=== PATIENT | male | born 1935 | race Caucasian/White ===

== ENCOUNTER 2017-05-30 04:58 | Inpatient (IN) | payer OTHER, BC ==
[2017-04-29 13:05] VITALS: BMI 32.0
--- NOTE | 2017-04-29 13:47 | PAT Medication Instructions ---
Service Date Apr 29, 2017. Current Home Medication List Amlodipine (Norvasc), 5 MG PO QAM Apixaban (Eliquis), 5 MG PO BID Ascorbic Acid (Vitamin C), 1 TAB PO QAM B-Complex Vitamins (Vitamin B Complex), 1 TAB PO QAM Celecoxib (CeleBREX), 200 MG PO QAM Ferrous Sulfate (Kp Ferrous Sulfate), 1 TAB PO BID Fluoxetine (Prozac), 20 MG PO QAM Furosemide (Lasix), 20 MG PO QAM Magnesium Oxide (Mag-Ox), 400 MG PO BID Metolazone (Zaroxolyn), 2.5 MG PO MWF Multivitamin (Multivitamin), 1 TAB PO QAM Potassium Ext Rel (Klor-Con), 20 MEQ PO BID Pregabalin (Lyrica), 1 CAP PO TID Spironolactone (Aldactone), 12.5 MG PO QAM Sucralfate (Sucralfate), 1 TAB PO BID Tamsulosin HCl (Tamsulosin HCl), 1 CAP PO BID Medication Instructions For Your Scheduled Surgery - Check with surgeon for instructions: Celecoxib (CeleBREX), 200 MG PO QAM - Check with surgeon and cardiac rehabilitation program director for instructions: Apixaban (Eliquis), 5 MG PO BID - Hold the following medications the morning of surgery: Spironolactone (Aldactone), 12.5 MG PO QAM Sucralfate (Sucralfate), 1 TAB PO BID Tamsulosin HCl (Tamsulosin HCl), 1 CAP PO BID Multivitamin (Multivitamin), 1 TAB PO QAM Potassium Ext Rel (Klor-Con), 20 MEQ PO BID Magnesium Oxide (Mag-Ox), 400 MG PO BID Furosemide (Lasix), 20 MG PO QAM Ferrous Sulfate (Kp Ferrous Sulfate), 1 TAB PO BID Ascorbic Acid (Vitamin C), 1 TAB PO QAM B-Complex Vitamins (Vitamin B Complex), 1 TAB PO QAM Metolazone (Zaroxolyn), 2.5 MG PO MWF - Take the following medications the morning of surgery with a sip of water: Pregabalin (Lyrica), 1 CAP PO TID Fluoxetine (Prozac), 20 MG PO QAM Amlodipine (Norvasc), 5 MG PO QAM - Take the following medications as scheduled the night before surgery: Sucralfate (Sucralfate), 1 TAB PO BID Tamsulosin HCl (Tamsulosin HCl), 1 CAP PO BID Pregabalin (Lyrica), 1 CAP PO TID Potassium Ext Rel (Klor-Con), 20 MEQ PO BID Magnesium Oxide (Mag-Ox), 400 MG PO BID Ferrous Sulfate (Kp Ferrous Sulfate), 1 TAB PO BID If you have any questions please call us at [phone] or [phone] or [phone]
--- NOTE | 2017-04-29 14:37 | DIAGNOSTIC IMAGING REPORT ---
CHEST 2 VIEWS ROUTINE CLINICAL HISTORY: PAT preoperative evaluation COMPARISON STUDY: None. FINDINGS: Cardiomegaly. Permanent bipolar cardiac pacemaker. Slight interstitial prominence. No focal infiltrate. Diaphragms smooth. IMPRESSION:: Moderate cardiomegaly. Slight nonspecific interstitial prominence. The above report was generated using voice recognition software. It may contain grammatical, syntax or spelling errors. Electronically signed by: Kun Frederick M.D. 04/29/2017 2:36 PM Dictated Date/Time: 04/29/2017 2:35 PM
[2017-04-29 15:01] LABS: BASO % 0.6 %; BASO ABS # 0.04 K/uL (0-0.2); EOS % 5.7 %; HEMOGLOBIN 8.5 g/dL (14.0-18.0); IG# 0.02 K/uL (0.00-0.02); LYMPH % 22.6 %; LYMPH ABS # 1.59 K/uL (1.2-3.4); MEAN CELL VOLUME 76.9 fL (80-100); MEAN CORPUSCULAR HEMOGLOBIN 23.4 pg (25-34); MEAN CORPUSCULAR HGB CONC 30.4 g/dl (32-36); MEAN PLATELET VOLUME 9.4 fL (7.4-10.4); MONO % 11.8 %; MONO ABS # 0.83 K/uL (0.11-0.59); NEUT ABS # 4.14 K/uL (1.4-6.5); PLATELET COUNT 205 K/uL (130-400); RED CELL DISTRIBUTION WIDTH CV 21.7 % (11.5-14.5); RED CELL DISTRIBUTION WIDTH SD 61.8 fL (36.4-46.3); WHITE BLOOD COUNT 7.02 K/uL (4.8-10.8)
[2017-04-29 15:11] LABS: INR 1.1 (0.9-1.1); PTT PATIENT 29.5 SECONDS (21.0-31.0)
[2017-04-29 16:20] LABS: ALBUMIN 3.2 gm/dl (3.4-5.0); CALCIUM 8.4 mg/dl (8.5-10.1); CREATININE 1.14 mg/dl (0.60-1.40); POTASSIUM 2.9 mmol/L (3.5-5.1)
[2017-04-30 06:46] LABS: HEMOGLOBIN A1C 5.1 % (4.5-5.6)
--- NOTE | 2017-05-29 17:21 | History and Physical ---
History & Physical Date May 29, 2017. Chief Complaint left ankle pain History of Present Illness The patient is a 82 year old male with complaints of a multi-year hx of left ankle pain and had been treated conservatively for ankle osteoarthritis. He has failed all conservative management and is now being set up for a left total ankle arthroplasty. Past Medical/Surgical History PMH: CAD, hyperlipidemia, A Fib, valvular heart disease, hx of anemia, hx of bladder cancer, AAA, COPD, hx of GI bleed Past surgical hx: back surgery, bladder surgery, FERNY, TKA, neck surgery, pacemaker implant, PTCA Social hx: Denies tobacco use. Allergies Coded Allergies: No Known Allergies (Verified , 04/29/17) Home Medications Scheduled Amlodipine (Norvasc), 5 MG PO QAM Apixaban (Eliquis), 5 MG PO BID Ascorbic Acid (Vitamin C), 1 TAB PO QAM B-Complex Vitamins (Vitamin B Complex), 1 TAB PO QAM Celecoxib (CeleBREX), 200 MG PO QAM Ferrous Sulfate (Kp Ferrous Sulfate), 1 TAB PO BID Fluoxetine (Prozac), 20 MG PO QAM Furosemide (Lasix), 20 MG PO QAM Magnesium Oxide (Mag-Ox), 400 MG PO BID Metolazone (Zaroxolyn), 2.5 MG PO MWF Multivitamin (Multivitamin), 1 TAB PO QAM Potassium Ext Rel (Klor-Con), 20 MEQ PO BID Pregabalin (Lyrica), 1 CAP PO TID Spironolactone (Aldactone), 12.5 MG PO QAM Sucralfate (Sucralfate), 1 TAB PO BID Tamsulosin HCl (Tamsulosin HCl), 1 CAP PO BID Physical Examination Skin: warm/dry, no rash Eyes: normal inspection ENT: normal ENT inspection Head: normocephalic, atraumatic Neck: supple, no adenopathy, trachea midline Respiratory/Chest: lungs clear, normal breath sounds, no respiratory distress Cardiovascular: regular rate, rhythm Abdomen / GI: normal bowel sounds, non tender Extremities: + pertinent finding (Left ankle: antalgic left gait. Tender to palpation at the anterior/posterior ankle. Painful PROM with crepitation. Limited strength and ROM left ankle.) Neurologic/Psych: no motor/sensory deficits, alert, oriented x 3 Diagnosis left ankle osteoarthritis left achilles contracture Plan of Treatment Recommend a left STAR total ankle replacement, percutaneous tendoachilles lengthening, and application of platelet rich plasma. All potential risks, benefits, complications, alternatives, and rehab have been discussed and the patient wishes to proceed. He will be scheduled for 05.30.17.
[~2017-05-30] VITALS: Ht 185.4 cm; Wt 101.0 kg
[2017-05-30] VITALS (10 sets, daily range): BP systolic 102–135; BP diastolic 54–75; PULSE 61–99; TEMP 36.4–36.9; O2SAT 88–97; Ht 185.4 cm; Wt 101.0 kg
[~2017-05-30 04:58] MED LIST: AMLO-110 PO; APIX1TAB3 PO; ASCA500 PO; B-COTAB18 PO; CLB/200 PO; FERR1TAB13 PO; FLM4 PO; FLUO20CA35 PO; FURO-85 PO; LYR50 PO; MAGN400T6 PO; METO2.5T PO; MULT-506 PO; POTA20TA16 PO; SPIR25TA PO; SUCR1TAB PO
[2017-05-30] MEDS ORDERED: ACETAMINOPHEN 500 MG TAB PO SCH (06:00)
[2017-05-30] MEDS ORDERED: CEFAZOLIN 2000MG IV PUSH 15 ML IV SCH ×2 (06:00)
[2017-05-30] MEDS ORDERED: METOCLOPRAMIDE HCL 10 MG TAB PO SCH (06:00)
[2017-05-30] MEDS ORDERED: OXYCODONE HCL 10 MG TABCR (OXYCONTIN) PO SCH (06:00)
[2017-05-30] MEDS ORDERED: CeleBREX 200 MG CAP PO SCH (06:00)
[2017-05-30] MEDS ORDERED: LACTATED RINGER'S 1000ML 1,000 ML IV SCH (06:00)
[2017-05-30] MEDS ORDERED: GABAPENTIN 300 MG CAP PO SCH (06:00)
[2017-05-30] MEDS ORDERED: LACTATED RINGER'S 1000ML IV SCH (06:00)
[2017-05-30] MEDS ORDERED: FAMOTIDINE 20 MG TAB PO SCH (06:00)
[2017-05-30] MEDS ORDERED: DEXAMETHASONE 4 MG TAB PO SCH (06:00)
[2017-05-30] MEDS ORDERED: BUPIVACAINE 0.25% 30 ML VIAL ONE (06:13)
[2017-05-30] MEDS ORDERED: ROPIVACAINE 0.5% 5 MG/ML 30 ML VIAL ONE (06:14)
[2017-05-30] MEDS ORDERED: ATROPINE SULFATE 0.1 MG/ML 5ML SYR IV PRN (06:45)
[2017-05-30] MEDS ORDERED: PHENYLEPHRINE 100MCG/ML 5ML SYR IV PRN (06:45)
[2017-05-30] MEDS ORDERED: EpHEDrine SULFATE INJ 50 MG/ML AMP IV PRN (06:45)
[2017-05-30] MEDS ORDERED: FENTANYL CITRATE INJ 50 MCG/1 ML 2 ML VIAL IV PRN (06:45)
[2017-05-30] MEDS ORDERED: ONDANSETRON INJ 2 MG/ML 2 ML VIAL IV PRN ×2 (06:45→11:15)
[2017-05-30] MEDS ORDERED: HYDROmorphone INJ 1 MG/ML SYR IV PRN (06:45)
[2017-05-30] MEDS ORDERED: DEXAMETHASONE SOD INJ 4 MG/ML VIAL ONE (06:57)
[2017-05-30] MEDS ORDERED: LIDOCAINE HCL 2% 2 ML VIAL (20MG/ML) ONE (06:57)
[2017-05-30] MEDS ORDERED: PROPOFOL IV EMULSION 10 MG/ML 20 ML VIAL IV ONE (06:57)
[2017-05-30] MEDS ORDERED: LARYING-O-JET KIT (LTA) ONE (06:57)
[2017-05-30] MEDS ORDERED: PHENYLEPHRINE 100MCG/ML 5ML SYR ONE (06:57)
[2017-05-30] MEDS ORDERED: EpHEDrine SULFATE 50MG/5ML SYR ONE (06:57)
[2017-05-30] MEDS ORDERED: ONDANSETRON INJ 2 MG/ML 2 ML VIAL ONE (06:57)
[2017-05-30] MEDS ORDERED: BACITRACIN 50000 UNIT VIAL ONE (06:58)
[2017-05-30] MEDS ORDERED: FENTANYL CITRATE INJ 50 MCG/1 ML 2 ML VIAL ONE (06:58)
[2017-05-30] MEDS ORDERED: MIDAZOLAM HCL 1 MG/ML 2ML VIAL ONE (06:58)
--- NOTE | 2017-05-30 07:37 | History & Physical Bridge Note ---
H&P Re-Evaluation Bridge Note: I have examined the patient, reviewed the History & Physical and in the interval since the performance of the History & Physical I have noted the following changes of clinical significance: No changes noted
[2017-05-30] MEDS ORDERED: THROMBIN 5000 UNITS KIT ONE ×2 (07:51→08:46)
[2017-05-30] MEDS ORDERED: CALCIUM CHLORIDE 10% 10 ML SYR ONE (07:52)
[2017-05-30] MEDS ORDERED: ROCURONIUM BROMIDE 10 MG/ML 5 ML VIAL IV ONE (08:19)
[2017-05-30] MEDS ORDERED: GLYCOPYRROLATE INJ 0.2 MG/ML VIAL ONE (08:19)
[2017-05-30] MEDS ORDERED: NEOSTIGMINE METHYLSULFATE 5 MG/5 ML SYR ONE (08:19)
--- NOTE | 2017-05-30 10:33 | DIAGNOSTIC IMAGING REPORT ---
INTRAOPERATIVE RADIOGRAPHS CLINICAL HISTORY: Left ankle arthroplasty. Fluoroscopy time: 143 seconds. FINDINGS: 2 spot fluoroscopic views of the left ankle are presented. There has been left ankle arthroplasty. The arthroplasty is in near-anatomic alignment. Soft tissue edema is present around the ankle. No fracture is suggested on these fluoroscopic views. IMPRESSION: Intraoperative images from a left ankle arthroplasty procedure as above. See operative report for detailed findings. Electronically signed by: Cuong Austin M.D. 05/30/2017 10:31 AM Dictated Date/Time: 05/30/2017 10:25 AM
--- NOTE | 2017-05-30 10:34 | [facility] Post Operative Brief Note ---
Immediate Operative Summary Operative Date May 30, 2017. Pre-Operative Diagnosis Left ankle degenerative joint disease, osteoarthritis Left achilles contracture Post-Operative Diagnosis Left ankle degenerative joint disease, osteoarthritis Left achilles contracture Procedure(s) Performed Left STAR Total Ankle Replacement Percutaneous Tendon Achilles Lengthening Application of Platelet Rich Plasma Concentrate Surgeon Dr. Bello Structural Designer Surgeon(s) Mick Vergara PA-C Estimated Blood Loss 15 ML Findings Consistent with Post-Op Diagnosis Specimens a. Left ankle bone and tissue Drains HV x 1 Anesthesia Type General Regional Complication(s) none Disposition Accompanied Pt To Recover: no Disposition: Recovery Room / PACU
[2017-05-30] MEDS ORDERED: MoRPHine SULFATE 2 MG/ML CARP IV PRN (11:15)
[2017-05-30] MEDS ORDERED: SOD PHOSPHATE/SOD BIPHOSPHATE ENEMA 132 ML BTL PR PRN (11:15)
[2017-05-30] MEDS ORDERED: BISACODYL 10 MG SUPP PR PRN (11:15)
[2017-05-30] MEDS ORDERED: CEFAZOLIN IV 2,000 MG in DEXTROSE 5% 50ML 50 ML IV SCH (11:15)
[2017-05-30] MEDS ORDERED: ALUMINUM/MAGNESIUM/SIMETH (MAALOX MAX) 30 ML UDC PO PRN (11:15)
[2017-05-30] MEDS ORDERED: ZOLPIDEM TARTRATE 5 MG TAB PO PRN (11:15)
[2017-05-30] MEDS ORDERED: NO NSAIDS SCH (11:15)
[2017-05-30] MEDS ORDERED: MAGNESIUM HYDROXIDE SUSP 30 ML UDC PO PRN (11:15)
--- NOTE | 2017-05-30 11:52 | Anesthesiology Progress Note ---
Anesthesia Post Op Note Date & Time May 30, 2017 at 11:52 Vital Signs Pain Intensity: 0 Vital Signs Past 12 Hours Date Time Temp Pulse Resp B/P (MAP) Pulse Ox O2 Delivery O2 Flow Rate FiO2 05/30/17 11:45 36.2 71 13 128/72 97 Nasal Cannula 4 05/30/17 11:35 76 16 131/73 97 Nasal Cannula 4 05/30/17 11:25 76 17 137/66 96 Nasal Cannula 4 05/30/17 11:15 79 21 134/73 100 Oxymask 8 05/30/17 11:05 93 18 122/80 100 Oxymask 15 05/30/17 10:55 36.3 96 20 124/64 94 Oxymask 15 05/30/17 05:56 36.9 69 20 135/69 95 Room Air Notes Mental Status: alert / awake / arousable, participated in evaluation Pt Amnestic to Procedure: Yes Nausea / Vomiting: adequately controlled Pain: adequately controlled Airway Patency, RR, SpO2: stable & adequate BP & HR: stable & adequate Hydration State: stable & adequate Anesthetic Complications: no major complications apparent Awake, doing well, pain controlled, VSS. Ready for d/c
--- NOTE | 2017-05-30 11:56 | OPERATIVE REPORT ---
DATE OF OPERATION: 05/30/2017 PREOPERATIVE DIAGNOSES: 1. Left ankle degenerative joint disease. 2. Osteoarthritis. 3. Achilles contracture. 4. Valgus ankle. POSTOPERATIVE DIAGNOSES: Same. PROCEDURES: 1. Left ankle STAR total ankle replacement using a size extra large tibial component, a small talar component and a 6-mm polyethylene. 2. Percutaneous tendo Achilles lengthening. 3. Application of platelet rich plasma concentrate. SURGEON: Dr. Alireza Bello. RAIL SWITCH OPERATOR: Mick Vergara PA-C, who was present for patient positioning, sterile prep and drape, management of retractors and instruments. He was present through the critical portions of the case including wound closure, application of sterile dressing and transport of the patient to recovery. ANESTHESIA: General LMA with popliteal block. SPECIMENS: Bone and tissue. DRAINS: Hemovac x1. COMPLICATIONS: None. BLOOD LOSS: 15 mL. PERTINENT HISTORY: This is an 82-year-old gentleman who had chronic progressive and worsening left ankle degenerative joint disease with valgus deformity. He attempted and failed conservative management including use of a brace, modification of activities, anti-inflammatories, rest, steroid injections, physician directed home exercises, physical therapy and observation. He had failed all measures and radiographs demonstrate [id number] arthropathy with loss of joint space, marginal osteophytes, subchondral sclerosis, subchondral cysts and a valgus deformity of the ankle at the tibiotalar joint. The patient was scheduled for surgery as indicated. All potential risks, benefits, complications, alternatives, rehab, potential for incomplete relief of symptoms, need for further surgery, DVT, PE, , persistent pain, swelling, scarring, weakness, neurovascular injury, wound complications, hardware failure, nonunion, and malunion were discussed with the patient. The patient decided to proceed with the procedure as indicated. DESCRIPTION OF PROCEDURE: The patient was taken to the operative suite after popliteal block was administered. The patient was placed supine on the operating room table. Tourniquet was applied over the left lower extremity. After the patient was anesthetized, LMA was placed. The left lower extremity was then sterilely prepped and draped in the usual sterile fashion [id number], elevated and exsanguinated with an Esmarch bandage, and tourniquet inflated to 325 mmHg. Next, a 15-blade scalpel incision made in the midline of the left ankle taking care to identify the tibialis anterior. The incision was made lateral to the tibialis anterior and centered over the extensor hallucis longus tendon. The incision was deepened through subcutaneous tissue. Meticulous hemostasis was achieved with electrocautery. Full-thickness skin flaps were developed. Superficial peroneal nerve was identified, retracted, and protected. Next, the extensor retinaculum was incised along the skin incision to the lateral aspect of the tibialis anterior. Tibialis anterior was retracted medially. The extensor hallucis longus and the neurovascular bundle beneath were retracted laterally. The small crossing vessels were cauterized. The anterior capsule was then incised in its midline and then elevated medially and laterally with electrocautery. Appropriate soft tissue retractors were placed carefully to maintain essentially zero skin tension on the superficial skin. After the capsule was elevated and retracted medially and laterally to visualize the medial and lateral malleoli clearly, rongeur was used to perform synovectomy and remove any excess debris and loose bodies. Next, the wound was irrigated and suctioned. Good visualization was obtained. At this point the anterior lip of hypertrophic bone was resected from the tibia with an osteotome and mallet followed by resection of a small osteophyte medially at the medial malleolus. Next, the tibial plafond could be clearly visualized. The neck of the talus was then rongeured down to the true neck of the talus after all hypertrophic osteophytes were excised. Next, attention was directed toward the proximal tibia at which point a 15-blade scalpel incision was made anterior of the tibial tubercle the inferior aspect using the external alignment guide as a guide for pin placement which was essentially in the midline of the tibia with a slight degree of plantar flexion. Guide was placed anteriorly using a small osteotome in the medial gutter of the ankle joint to operator helper in alignment. Next, the small 2.4 mm pin was placed adjacent to the tibial tubercle and the alignment guide was placed approximately one fingerbreadth above the soft tissue and fastened there at approximately four notches medialized proximally. Next, the T-handle guide was placed anteriorly and then this was aligned with the small osteotome and placed in the medial gutter of the ankle joint to make this parallel and then also the orientation of the second ray of the foot was used to guide as well. Next, the more proximal alignment block was pinned unicortically followed by placement of the lateral alignment guide on the tibial alignment jig and the T-handle was removed. Distal cutting block was then fastened to the distal aspect of the tibial alignment guide and then x-rays obtained in AP and lateral projections of the ankle and tibia assuring appropriate alignment of the tibial alignment guide and the tibial cutting block. After appropriate alignment was established, the distal cutting block was then pinned in place with two 2.4 mm pins, one in the proximal and then secondarily in the distal aspect of the tibial cutting guide and the tibial cutting guide was aligned at the inferior aspect at the level of the tibial plafond. Next, after the tibial cutting blocks were aligned and confirmed, the medial and lateral saw capture pins were placed followed by resection of the distal tibia with a sagittal saw. The pins were removed and the distal cutting guide was then removed followed by removal of the distal tibial cut fragment after it was morselized with a small osteotome and resected with a rongeur. A cervical lamina lumber loader was placed in the ankle joint to open the ankle joint followed by resection of the posterior fragments from the distal tibia cut. Next, the talar cutting guide paddle was placed at the distal tibial cutting guide and fastened in place. The ankle was held in neutral dorsiflexion. Four pins were placed in the talar cutting block fixing the talus in appropriate alignment. Next, after the saw capture pins were placed, the sagittal saw was used to resect the superior aspect of the talus. The talar cutting block guide was then removed as well as the pins and talus. This was then followed by placement of datum guide which was initially placed as an extra small position with regard to position on the talus as well as orientation along the second ray. Central pin was placed and then the posterior capture cutting guide was attached and the anterior milling guide was also fastened with two football screws. Next, the anterior mill was used to resect the anterior aspect of the talar dome. Posterior cut was made. This jig was then removed followed by placement of the shoulder cutting guide and the reciprocating saw was just resect the shoulder portions of the talus using the laser cut line. This guide was then removed leaving the central pin followed by resection of the fragments using a small osteotome and mallet. This was then elevated and resected. Next, the window trial was firmly affixed to the superior aspect of the talus using fluoroscopic confirmation of alignment and position. Next, the central keel was drilled. The window trial was then removed following use of the central keel punch. This was also confirmed using fluoroscopic orthopaedic physician assistant. The wound was copiously irrigated with pulsatile lavage with Bacitracin additive followed by suctioning of the talar component. Platelet-rich plasma was injected at this time at the undersurface of the implant as well as in the talar dome. The final talar component was impacted in place with fluoroscopic assistance. Next, a trial polyethylene 6 mm was placed in the joint and the posterior aspect of the tibia was measured both medially and laterally. Appropriate size tibial drill guide was then placed and fastened with two pins. This was confirmed with x-ray and then the barrel drills x 2 were performed making certain to aim proximally. Next, the barrel cutting jig was then used to perform the final punch medially and laterally. The trial plate was then removed after appropriate sized polyethylene was sized. Next, the joint was copiously irrigated with pulsatile lavage followed by suctioning of all surfaces. The tibia was then injected with platelet-rich plasma as well as the superior aspect of the tibial final plate implant. This was then impacted in place with the trial polyethylene liner in place to ensure adequate positioning. Next, the final impactor was used to seat the tibial base tray flush with the anterior aspect of the tibia followed by bone grafting of the anterior barrel holes with local bone graft. This was impacted in place with a mallet and bone tamp. This then followed by confirmation with C-arm and then final polyethylene was inserted without difficulty. Excellent range of motion and stability was obtained. No liftoff was noted. The platelet-rich plasma was then sprayed within the joint and all surfaces and also into the subcutaneous tissue and deep soft tissue. Application of platelet rich plasma concentrate was then performed on the undersurfaces of the press fit components and also in the soft tissues of the joint, the joint capsule and soft tissues superficially. A 10-Sudanese single-lumen Hemovac drain was placed anterolaterally followed by closure of the ankle joint capsule with #1 Vicryl. The extensor retinaculum was closed using interrupted 2-0 Vicryl, the dermis closed buried 3-0 Vicryl, and skin was closed using 4-0 nylon. A sterile compressive bulky Jerod White plaster splint was applied overwrapped with an Elan wrap. Tourniquet was released. The patient was awakened and taken to recovery in stable condition. I attest to the content of the Intraoperative Record and any orders documented therein. Any exceptions are noted below. FRANCESCOD
--- NOTE | 2017-05-30 12:07 | DIAGNOSTIC IMAGING REPORT ---
LEFT ANKLE 3 VIEWS CLINICAL HISTORY: Arthritis. Postoperative examination. FINDINGS: 3 portable views of the left ankle are obtained. No prior studies are available for comparison at the time of dictation. The examination is performed through a splint, obscuring fine bony detail. The skeletal structures are osteopenic. A left ankle arthroplasty is in near-anatomic alignment. No acute fracture is seen. A surgical drain is in place. Skin clips are noted posteriorly. Soft tissue edema is present around the ankle. Atherosclerotic calcification is observed in the regional arteries. IMPRESSION: Expected postoperative findings status post left ankle arthroplasty procedure. No acute fracture is seen. Electronically signed by: Cuong Austin M.D. 05/30/2017 12:06 PM Dictated Date/Time: 05/30/2017 12:03 PM
[2017-05-30] MEDS ORDERED: POTASSIUM CHLR 20 MEQ / WTR 20 MEQ in PREMIXED WATER 100 ML IV SCH (12:45)
[2017-05-30] MEDS ORDERED: MAGNESIUM SULFATE 1GM / D5W 1 GM in PREMIXED IN D5W 100 ML IV STA (12:59)
--- NOTE | 2017-05-30 12:59 | Medical Consult ---
Consultation Date of Consultation: May 30, 2017. Attending Physician: Alireza Bello D.O. History of Present Illness 82 y/o M Hx AF, pacer, chronic anemia, CAD, HTN, LE edema Pt is post-op elective L total ankle replacement. A medical consult was requested for post- op evaluation due to his complex medical history. The pt is recovering well - denies SOB, CP, nausea, lightheadedness or fevers. Denies any pain at the surgical site presently. Past Medical/Surgical History 1) CAD - distant history of silent VA 2) AF 3) History of GI blood loss 4) Anemia - receives iron infusions 5) HPL 6) Ventricular pacer 7) Chronic lower extremity edema - the pt takes Lasix, Aldactone, Metolazone but insists he does not have a history of CHF Surgical 1) FERNY 2) TKA 3) Total ankle replacement 4) Neck surgery 5) Bladder surgery Family History Noncontributory Social History Smoking Status: Former Smoker Allergies Coded Allergies: No Known Allergies (Verified , 05/30/17) Current Inpatient Medications Current Inpatient Medications Medications (Trade) Dose Ordered Sig/Christofer Route Start Time Stop Time Status Last Admin Dose Admin Lactated Ringer's 1,000 ml @ 15 mls/hr Q24H IV 05/30/17 06:00 05/31/17 05:59 Lactated Ringer's 1,000 ml @ 60 mls/hr [id number] IV 05/30/17 06:00 05/30/17 22:39 05/30/17 06:29 60 MLS/HR Cefazolin Sodium 15 ml @ 2.5 mls/min PREOP IV 05/30/17 06:00 05/30/17 18:00 Acetaminophen (Tylenol Tab) 1,000 mg PREOP PO 05/30/17 06:00 05/30/17 18:00 05/30/17 06:28 1,000 MG Celecoxib (CeleBREX CAP) 200 mg PREOP PO 05/30/17 06:00 05/30/17 18:00 05/30/17 06:28 200 MG Dexamethasone (Decadron Tab) 8 mg PREOP PO 05/30/17 06:00 05/30/17 18:00 05/30/17 06:27 8 MG Famotidine (Pepcid Tab) 20 mg PREOP PO 05/30/17 06:00 05/30/17 18:00 05/30/17 06:29 20 MG Gabapentin (Neurontin Cap) 300 mg PREOP PO 05/30/17 06:00 05/30/17 18:00 05/30/17 06:27 300 MG Metoclopramide HCl (Reglan Tab) 10 mg PREOP PO 05/30/17 06:00 05/30/17 18:00 05/30/17 06:27 10 MG Oxycodone HCl (Oxycontin Tab) 10 mg PREOP PO 05/30/17 06:00 05/30/17 18:00 05/30/17 06:28 10 MG Potassium Chloride/Dextrose/ Sod Cl 1,000 ml @ 100 mls/hr Q10H IV 05/30/17 11:02 06/29/17 11:01 UNV Miscellaneous Medication (No Nsaids) 1 ea UD N/A 05/30/17 11:15 06/29/17 11:14 Oxycodone HCl (Roxicodone Immediate Rel Tab) 1-2 TABS FOR PAIN 1 TABLET ... Q4H PRN PO 05/30/17 11:15 06/13/17 11:14 UNV Morphine Sulfate (MoRPHine SULFATE INJ) 2 mg Q1HWA PRN IV 05/30/17 11:15 06/13/17 11:14 UNV Acetaminophen (Tylenol Tab) 1,000 mg Q8H PO 05/30/17 11:15 06/29/17 11:14 UNV Magnesium Hydroxide (Milk Of Magnesia Susp) 30 ml Q6H PRN PO 05/30/17 11:15 06/29/17 11:14 Bisacodyl (Dulcolax Supp) 10 mg DAILY PRN MA 05/30/17 11:15 06/29/17 11:14 Sodium Biphosphate/ Sodium Phosphate (Fleet Enema) 132 ml DAILY PRN MA 05/30/17 11:15 06/29/17 11:14 Senna (Senokot Tab) 17.2 mg HS PO 05/30/17 21:00 06/29/17 20:59 UNV Docusate Sodium (coLACE CAP) 100 mg BID PO 05/30/17 21:00 06/29/17 20:59 UNV Diphenhydramine HCl (Benadryl Cap) 25 mg Q8H PRN PO 05/30/17 11:15 06/29/17 11:14 Al Hydrox/Mg Hydrox/Simethicone (Maalox Max Susp) 15 ml Q4H PRN PO 05/30/17 11:15 06/29/17 11:14 Zolpidem Tartrate (Ambien Tab) 5 mg HSZ PRN PO 05/30/17 11:15 06/29/17 11:14 Multivitamins (Multivitamin Tab) 1 tab QAM PO 05/31/17 09:00 06/30/17 08:59 UNV Ondansetron HCl (Zofran Inj) 4 mg Q6H PRN IV 05/30/17 11:15 06/29/17 11:14 Cefazolin Sodium 2000 mg/Dextrose 65 ml @ 100 mls/hr Q8H IV 05/30/17 11:15 05/30/17 19:53 UNV Amlodipine Besylate (Norvasc Tab) 5 mg QAM PO 05/31/17 09:00 06/30/17 08:59 UNV Ascorbic Acid (Vitamin C Tab) 500 mg QAM PO 05/31/17 09:00 06/30/17 08:59 UNV Fluoxetine HCl (Prozac Cap) 20 mg QAM PO 05/31/17 09:00 06/30/17 08:59 UNV Furosemide (Lasix Tab) 20 mg QAM PO 05/31/17 09:00 06/30/17 08:59 UNV Magnesium Oxide (Mag-Ox Tab) 400 mg BID PO 05/30/17 21:00 06/29/17 20:59 UNV Metolazone (Zaroxolyn Tab) 2.5 mg UD PO 05/30/17 11:15 06/29/17 11:14 UNV Multivitamins (Multivitamin Tab) 1 tab QAM PO 05/31/17 09:00 06/30/17 08:59 UNV Potassium Chloride (Klor-Con Tab) 20 meq BID PO 05/30/17 21:00 06/29/17 20:59 UNV Pregabalin (Lyrica Cap) 50 mg TID PO 05/30/17 14:00 06/29/17 13:59 UNV Spironolactone (Aldactone Tab) 12.5 mg QAM PO 05/31/17 09:00 06/30/17 08:59 UNV Sucralfate (Carafate Tab) 1 gm BID PO 05/30/17 21:00 06/29/17 20:59 UNV Tamsulosin HCl (Flomax Cap) 0.4 mg BID PO 05/30/17 21:00 06/29/17 20:59 UNV Non-Formulary Medication (Apixaban (Eliquis)) 5 mg BID PO 05/30/17 21:00 06/29/17 20:59 UNV Non-Formulary Medication (B-Complex Vitamins (Vitamin B Complex)) 1 tab QAM PO 05/31/17 09:00 06/30/17 08:59 UNV Non-Formulary Medication (Ferrous Sulfate (Kp Ferrous Sulfate)) 1 tab BID PO 05/30/17 21:00 06/29/17 20:59 UNV Review of Systems Constitutional: No fever, No chills, No sweats Eyes: No worsening of vision ENT: No hearing loss, No nasal symptoms Respiratory: No cough, No sputum, No wheezing Cardiovascular: No chest pain, No PND Abdomen: No pain, No nausea, No vomiting Musculoskeletal: No joint pain Genitourinary - Male: No hematuria, No dysuria Neurologic: No memory loss, No paralysis, No weakness Psychiatric: No depression symptoms Endocrine: No fatigue Hematologic / Lymphatic: No abnormal bleeding/bruising Integumentary: No rash Allergic / Immunologic: No environmental allergies Physical Exam Date Time Temp Pulse Resp B/P (MAP) Pulse Ox O2 Delivery O2 Flow Rate FiO2 05/30/17 12:10 97 Nasal Cannula 2.0 05/30/17 12:10 97 Nasal Cannula 2.0 05/30/17 12:10 36.8 84 18 133/75 (94) 97 Nasal Cannula 2.0 05/30/17 11:45 36.2 71 13 128/72 97 Nasal Cannula 4 05/30/17 11:35 76 16 131/73 97 Nasal Cannula 4 05/30/17 11:25 76 17 137/66 96 Nasal Cannula 4 05/30/17 11:15 79 21 134/73 100 Oxymask 8 05/30/17 11:05 93 18 122/80 100 Oxymask 15 05/30/17 10:55 36.3 96 20 124/64 94 Oxymask 15 05/30/17 05:56 36.9 69 20 135/69 95 Room Air General Appearance: WD/WN, no apparent distress Head: normocephalic Eyes: normal inspection ENT: normal ENT inspection, hearing grossly normal Neck: supple, no JVD Respiratory/Chest: chest non-tender, lungs clear, normal breath sounds Cardiovascular: regular rate, rhythm, no edema, no gallop, no JVD, + systolic murmur (Mmild systolic murmur) Abdomen/GI: normal bowel sounds, non tender, soft Back: normal inspection, no CVA tenderness Extremities/Musculoskelatal: no pedal edema, + pertinent finding (L ankle cannot be examined due to splinting - drain in place - pulses present distally) Neurologic/Psych: bearingizer II-XII nml as tested, no motor/sensory deficits, alert, oriented x 3 Skin: normal color, warm/dry Assessment & Plan 82 y/o M Hx AF, pacer, COPD, chronic anemia, CAD, CHF, HTN. Pt is post-op elective total ankle replacement. A medical consult was requested for post-op evaluation due to his complex medical history. 1) Post-op - recovering well, does not c/o SOB, CP, N/V, lightheadedness or excessive pain. Can likely resume his med reg starting this evening although we normally hold diuretics post-op and would restart Lasix, Aldactone, Metolazone following AM reassessment and lab review the following day. He denies a history of CHF so these meds are not likely urgent regardless. He is normally anticoagulated with Apixaban which appears to have been restarted per ortho. Pt denies any post-op pain at present. 2) AF - EKG shows ventricular pacing - he is not taking any rate-control meds. Apixaban is continued. 3) Anemia - repeat BMP pending - last on record 8.5 on 04/29. 4) HTN - cont Norvasc - resume diuretics AM pending labs. Total time for this consult including review of labs, meds, records, EKG - discussion with pt, family - review of ortho notes - 33 min Medical service will follow daily pending DC
[2017-05-30] MEDS: D5W AND 1/2NSS + 20MEQ KCL 1,000 ML IV SCH ×2 (13:18→23:32)
[2017-05-30] MEDS: ACETAMINOPHEN 500 MG TAB PO SCH ×2 (13:19→20:47)
[2017-05-30] MEDS ORDERED: POTASSIUM CHLR 10MEQ / WTR IV SCH (14:00)
[2017-05-30 14:02] LABS: HEMATOCRIT 36.3 % (42-52); HEMOGLOBIN 11.7 g/dL (14.0-18.0); MEAN CELL VOLUME 81.6 fL (80-100); MEAN CORPUSCULAR HEMOGLOBIN 26.3 pg (25-34); MEAN CORPUSCULAR HGB CONC 32.2 g/dl (32-36); MEAN PLATELET VOLUME 9.3 fL (7.4-10.4); PLATELET COUNT 172 K/uL (130-400); RED CELL DISTRIBUTION WIDTH CV 20.2 % (11.5-14.5); RED CELL DISTRIBUTION WIDTH SD 61.1 fL (36.4-46.3); WHITE BLOOD COUNT 6.01 K/uL (4.8-10.8)
[2017-05-30] MEDS: PREGABALIN 50 MG CAP PO SCH ×2 (14:07→20:50)
[2017-05-30 14:19] LABS: CALCIUM 8.8 mg/dl (8.5-10.1); CREATININE 0.92 mg/dl (0.60-1.40); POTASSIUM 3.8 mmol/L (3.5-5.1)
[2017-05-30] MEDS: CEFAZOLIN IV 2,000 MG in SYRINGE 0 ML IV SCH ×2 (15:37→23:34)
--- NOTE | 2017-05-30 17:16 | Discharge Instructions ---
Discharge Instructions Date of Service May 30, 2017. Admission Reason for Admission: Left Ankle Osteoarthritis Discharge Discharge Diagnosis / Problem: left ankle osteoarthritis Discharge Goals Goal(s): Decrease discomfort, Improve function Activity Recommendations Activity Level: OOB In Chair Therapies: Physical Therapy, Weight Bearing Status (Nonweightbearing left lower extremity) Weightbearing Status: Left non-weightbearing . Additional Information Patient informed of condition: Yes Advance Directives: Yes DNR: No Level of Care: Acute Rehab Communicable Disease: No Prognosis: Stable Instructions / Follow-Up Instructions / Follow-Up ACTIVITY RECOMMENDATIONS: Limitations: No weight bearing to affected limb at all times. SPECIAL CARE INSTRUCTIONS: * Some drainage onto the dressing is normal and is no cause for alarm. * Some swelling is natural especially after walking. * When resting, keep your foot elevated above the level of your heart. * Call [facility] if you notice: -Increased drainage -Fever over 101 degrees F -Severe constant pain BANDAGE: * Leave bandage/cast in place unless otherwise directed. * Keep bandage/cast dry at all times. FOLLOW UP VISIT WITH DR. RODRIGUEZ If appointment is not already scheduled: Please call [facility] after you get home today to schedule a follow-up appointment for [address] Rodriguez at . Current Hospital Diet Patient's current hospital diet: AHA Diet (Heart Healthy) Discharge Diet Recommended Diet: AHA Diet (Heart Healthy) Procedures Procedures Performed: Left STAR Total Ankle Replacement Percutaneous Tendon Achilles Lengthening Application of Platelet Rich Plasma Concentrate Pending Studies Studies pending at discharge: no Laboratory Results Hemoglobin A1c Test 04/29/17 13:52 Range/Units Estimated Average Glucose 100 mg/dl Hemoglobin A1c 5.1 4.5-5.6 % Medical Emergencies . Who to Call and When: Medical Emergencies: If at any time you feel your situation is an emergency, please call 911 immediately. . Non-Emergent Contact Non-Emergency issues call your: Surgeon Call Non-Emergent contact if: temperature is above 101, your pain is not controlled, your pain is worsening . . "Provider Documentation" section prepared by Mick Vergara. . Core Measure Problem Core Measures: None
[2017-05-30] MEDS: POTASSIUM CHLORIDE 20 MEQ TABCR PO SCH (20:42)
[2017-05-30] MEDS: MAGNESIUM OXIDE 400 MG TAB PO SCH (20:43)
[2017-05-30] MEDS: SUCRALFATE 1 GM TAB PO SCH (20:43)
[2017-05-30] MEDS: FERROUS SULFATE 325 MG TAB PO SCH (20:43)
[2017-05-30] MEDS: SENNA 8.6 MG TAB PO SCH (20:44)
[2017-05-30] MEDS: TAMSULOSIN HCL 0.4 MG CAP PO SCH (20:45)
[2017-05-30] MEDS: DOCUSATE SODIUM 100 MG CAP PO SCH (20:46)
[2017-05-31 03:30] VITALS: BP 116/70; PULSE 60; TEMP 36.5; O2SAT 98
[2017-05-31] MEDS: ACETAMINOPHEN 500 MG TAB PO SCH ×3 (05:45→21:23)
[2017-05-31 06:54] LABS: HEMATOCRIT 33.8 % (42-52); HEMOGLOBIN 10.7 g/dL (14.0-18.0); MEAN CELL VOLUME 82.2 fL (80-100); MEAN CORPUSCULAR HGB CONC 31.7 g/dl (32-36); MEAN PLATELET VOLUME 9.7 fL (7.4-10.4); PLATELET COUNT 149 K/uL (130-400); RED CELL DISTRIBUTION WIDTH CV 19.8 % (11.5-14.5); RED CELL DISTRIBUTION WIDTH SD 60.4 fL (36.4-46.3); WHITE BLOOD COUNT 10.18 K/uL (4.8-10.8)
[2017-05-31 07:24] VITALS: BP 113/61; PULSE 70; TEMP 36.6; O2SAT 97
[2017-05-31 07:35] LABS: CALCIUM 8.5 mg/dl (8.5-10.1); CREATININE 0.98 mg/dl (0.60-1.40)
--- NOTE | 2017-05-31 07:42 | Progress Note ---
Subjective Date of Service: May 31, 2017. Subjective pt is doing well and planning on going to rehab after discharge, pain controlled Review of Systems Constitutional: No fever, No chills, No weakness, No fatigue Respiratory: No cough, No shortness of breath Cardiac: No chest pain, No edema Musculoskeletal: No joint pain, No muscle pain Psychiatric: No depression symptoms, No anhedonism Objective Vital Signs Date Time Temp Pulse Resp B/P (MAP) Pulse Ox O2 Delivery O2 Flow Rate FiO2 05/31/17 07:24 36.6 70 17 113/61 (78) 97 Room Air 05/31/17 03:30 36.5 60 16 116/70 (85) 98 Nasal Cannula 3.0 05/30/17 23:30 97 Room Air 3.0 05/30/17 23:30 36.4 61 16 109/54 (72) 88 Room Air 05/30/17 19:47 36.6 72 16 120/54 (76) 97 Nasal Cannula 3.0 05/30/17 19:00 Nasal Cannula 05/30/17 15:59 36.9 68 16 117/58 (77) 90 Nasal Cannula 3.0 05/30/17 15:10 36.5 74 16 125/62 (83) 94 Nasal Cannula 2.0 05/30/17 14:10 36.5 82 18 114/68 (83) 91 Nasal Cannula 2.0 05/30/17 13:21 36.5 99 18 102/65 (77) 95 Nasal Cannula 2.0 05/30/17 12:50 36.5 76 18 119/66 (83) 95 Nasal Cannula 2.0 05/30/17 12:40 73 16 121/65 (83) 94 Nasal Cannula 2.0 05/30/17 12:10 97 Nasal Cannula 2.0 05/30/17 12:10 97 Nasal Cannula 2.0 05/30/17 12:10 36.8 84 18 133/75 (94) 97 Nasal Cannula 2.0 05/30/17 11:45 36.2 71 13 128/72 97 Nasal Cannula 4 05/30/17 11:35 76 16 131/73 97 Nasal Cannula 4 05/30/17 11:25 76 17 137/66 96 Nasal Cannula 4 05/30/17 11:15 79 21 134/73 100 Oxymask 8 05/30/17 11:05 93 18 122/80 100 Oxymask 15 05/30/17 10:55 36.3 96 20 124/64 94 Oxymask 15 Physical Exam General Appearance: WD/WN, + mild distress Eyes: normal inspection, sclerae normal Neck: supple, no JVD Respiratory/Chest: chest non-tender, lungs clear, normal breath sounds Cardiovascular: regular rate, rhythm, no murmur Abdomen: normal bowel sounds, non tender, soft Extremities: no calf tenderness, + swelling Neurologic/Psychiatric: alert, oriented x 3 Laboratory Results Last 24 Hours Test 05/30/17 13:34 05/31/17 06:38 White Blood Count 6.01 K/uL 10.18 K/uL Red Blood Count 4.45 M/uL 4.11 M/uL Hemoglobin 11.7 g/dL 10.7 g/dL Hematocrit 36.3 % 33.8 % Mean Corpuscular Volume 81.6 fL 82.2 fL Mean Corpuscular Hemoglobin 26.3 pg 26.0 pg Mean Corpuscular Hemoglobin Concent 32.2 g/dl 31.7 g/dl RDW Standard Deviation 61.1 fL 60.4 fL RDW Coefficient of Variation 20.2 % 19.8 % Platelet Count 172 K/uL 149 K/uL Mean Platelet Volume 9.3 fL 9.7 fL Sodium Level 137 mmol/L 134 mmol/L Potassium Level 3.8 mmol/L 4.0 mmol/L Chloride Level 103 mmol/L 103 mmol/L Carbon Dioxide Level 26 mmol/L 22 mmol/L Anion Gap 8.0 mmol/L 9.0 mmol/L Blood Urea Nitrogen 15 mg/dl 21 mg/dl Creatinine 0.92 mg/dl 0.98 mg/dl Est Creatinine Clear Calc Drug Dose 78.7 ml/min 73.9 ml/min Estimated GFR () 90.1 83.5 Estimated GFR (Non- 77.7 72.0 BUN/Creatinine Ratio 16.7 21.1 Random Glucose 134 mg/dl 128 mg/dl Calcium Level 8.8 mg/dl 8.5 mg/dl Assessment and Plan 82 y/o M Hx AF, pacer, COPD, chronic anemia, CAD, CHF, HTN. Pt is post-op elective total ankle replacement. A medical consult was requested for post-op evaluation due to his complex medical history. Ortho has continued Apixaban which he will use for dvt prevention and afib full AC AF - EKG shows ventricular pacing - he is not taking any rate-control meds. Apixaban is continued. Anemia - repeat BMP pending - last on record 8.5 on 04/29. HTN - cont Norvasc - resume diuretics AM pending labs.
[2017-05-31] MEDS ORDERED: NURSING VERBAL MED ORDER ONE (08:15)
[2017-05-31] MEDS: SUCRALFATE 1 GM TAB PO SCH ×2 (08:44→21:19)
[2017-05-31] MEDS: POTASSIUM CHLORIDE 20 MEQ TABCR PO SCH ×2 (08:45→21:19)
[2017-05-31] MEDS: TAMSULOSIN HCL 0.4 MG CAP PO SCH ×2 (08:45→21:18)
[2017-05-31] MEDS: ASCORBIC ACID 500 MG TAB PO SCH (08:45)
[2017-05-31] MEDS: VITAMIN B COMPLEX TAB PO SCH (08:45)
[2017-05-31] MEDS: PREGABALIN 50 MG CAP PO SCH ×3 (08:45→21:22)
[2017-05-31] MEDS: FLUOXETINE HCL 20 MG CAP PO SCH (08:45)
[2017-05-31] MEDS: FUROSEMIDE 20 MG TAB PO SCH (08:45)
[2017-05-31] MEDS: MAGNESIUM OXIDE 400 MG TAB PO SCH ×2 (08:45→21:18)
[2017-05-31] MEDS: MULTIVITAMIN TAB PO SCH (08:45)
[2017-05-31] MEDS: APIXABAN 2.5 MG TAB PO SCH ×2 (08:45→21:18)
[2017-05-31] MEDS: SPIRONOLACTONE 25 MG TAB PO SCH (08:46)
[2017-05-31] MEDS: FERROUS SULFATE 325 MG TAB PO SCH ×2 (08:46→18:43)
[2017-05-31] MEDS: DOCUSATE SODIUM 100 MG CAP PO SCH ×2 (08:46→21:19)
--- NOTE | 2017-05-31 08:46 | Orthopedic Progress Note ---
Orthopedic Progress Note Date of Service May 31, 2017. Subjective Post OP Day: 1 Reports: feeling well, pain controlled w PO medications, Denies: complaints, chest pain, SOB, nausea / vomiting, light headedness, calf pain Objective calves soft nontender, N/V intact, splint C/D/I, capillary refill less than 2 sec., dressing C/D/I, A&O x3, toes mobile, hemovac drainage (250 cc yesterday, 25 cc so far today) Date Time Temp Pulse Resp B/P (MAP) Pulse Ox O2 Delivery O2 Flow Rate FiO2 05/31/17 07:31 Room Air 05/31/17 07:24 36.6 70 17 113/61 (78) 97 Room Air 05/31/17 03:30 36.5 60 16 116/70 (85) 98 Nasal Cannula 3.0 05/30/17 23:30 97 Room Air 3.0 05/30/17 23:30 36.4 61 16 109/54 (72) 88 Room Air 05/30/17 19:47 36.6 72 16 120/54 (76) 97 Nasal Cannula 3.0 05/30/17 19:00 Nasal Cannula 05/30/17 15:59 36.9 68 16 117/58 (77) 90 Nasal Cannula 3.0 05/30/17 15:10 36.5 74 16 125/62 (83) 94 Nasal Cannula 2.0 05/30/17 14:10 36.5 82 18 114/68 (83) 91 Nasal Cannula 2.0 05/30/17 13:21 36.5 99 18 102/65 (77) 95 Nasal Cannula 2.0 05/30/17 12:50 36.5 76 18 119/66 (83) 95 Nasal Cannula 2.0 05/30/17 12:40 73 16 121/65 (83) 94 Nasal Cannula 2.0 05/30/17 12:10 97 Nasal Cannula 2.0 05/30/17 12:10 97 Nasal Cannula 2.0 05/30/17 12:10 36.8 84 18 133/75 (94) 97 Nasal Cannula 2.0 05/30/17 11:45 36.2 71 13 128/72 97 Nasal Cannula 4 05/30/17 11:35 76 16 131/73 97 Nasal Cannula 4 05/30/17 11:25 76 17 137/66 96 Nasal Cannula 4 05/30/17 11:15 79 21 134/73 100 Oxymask 8 05/30/17 11:05 93 18 122/80 100 Oxymask 15 05/30/17 10:55 36.3 96 20 124/64 94 Oxymask 15 Laboratory Results 24 Hours: Test 05/30/17 13:34 05/31/17 06:38 Hematocrit 36.3 % 33.8 % Hemoglobin 11.7 g/dL 10.7 g/dL Assessment & Plan Assessment: POD #1 Left STAR Total Ankle Replacement Percutaneous Tendon Achilles Lengthening Application of Platelet Rich Plasma Concentrate Plan: NWB LLE at all times. DVT prophylaxis is Eliquis D/C planning--SNF vs. Rehab. D/C hemovac later today. Inhouse Planning Pain Management: Morphine, PO Tylenol, Oxy IR DVT Prophylaxis: TEDs, other (Eliquis) Discharge Planning Discharge Planning: uncertain
[2017-05-31] MEDS ORDERED: MULTIVITAMIN TAB PO SCH (09:00)
[2017-05-31] MEDS: AMLODIPINE BESYLATE 5 MG TAB PO SCH (09:16)
[2017-05-31 12:08] VITALS: BP 143/51; PULSE 68; TEMP 36.4; O2SAT 97
[2017-05-31 15:05] VITALS: BP 127/64; PULSE 61; TEMP 36.7; O2SAT 98
[2017-05-31] MEDS: OXYCODONE HCL IR 5 MG TAB (IMMEDIATE RELEASE) PO PRN ×2 (15:44→21:19)
[2017-05-31] MEDS: SENNA 8.6 MG TAB PO SCH (21:19)
[2017-05-31] MEDS ORDERED: ACET-24 PO (22:12)
[2017-05-31] MEDS ORDERED: RXC5 PO (22:12)
[2017-05-31 23:38] VITALS: BP 112/65; PULSE 67; TEMP 36.6; O2SAT 93
[2017-06-01] MEDS: ACETAMINOPHEN 500 MG TAB PO SCH (05:37)
[2017-06-01 06:00] LABS: HEMATOCRIT 33.7 % (42-52); HEMOGLOBIN 10.6 g/dL (14.0-18.0); MEAN CELL VOLUME 82.8 fL (80-100); MEAN CORPUSCULAR HGB CONC 31.5 g/dl (32-36); MEAN PLATELET VOLUME 9.6 fL (7.4-10.4); PLATELET COUNT 160 K/uL (130-400); RED CELL DISTRIBUTION WIDTH SD 60.9 fL (36.4-46.3); WHITE BLOOD COUNT 8.49 K/uL (4.8-10.8)
[2017-06-01 06:33] VITALS: BP 140/77; PULSE 77; TEMP 36.8; O2SAT 94
[2017-06-01 06:35] LABS: CALCIUM 8.6 mg/dl (8.5-10.1); CREATININE 0.98 mg/dl (0.60-1.40); POTASSIUM 3.7 mmol/L (3.5-5.1)
[2017-06-01] MEDS: FERROUS SULFATE 325 MG TAB PO SCH (07:20)
[2017-06-01] MEDS: SUCRALFATE 1 GM TAB PO SCH (07:21)
[2017-06-01] MEDS: SPIRONOLACTONE 25 MG TAB PO SCH (07:21)
[2017-06-01] MEDS: DOCUSATE SODIUM 100 MG CAP PO SCH (07:22)
[2017-06-01] MEDS: APIXABAN 2.5 MG TAB PO SCH (07:22)
[2017-06-01] MEDS: POTASSIUM CHLORIDE 20 MEQ TABCR PO SCH (07:23)
[2017-06-01] MEDS: TAMSULOSIN HCL 0.4 MG CAP PO SCH (07:23)
[2017-06-01] MEDS: MAGNESIUM OXIDE 400 MG TAB PO SCH (07:24)
[2017-06-01] MEDS: ASCORBIC ACID 500 MG TAB PO SCH (07:24)
[2017-06-01] MEDS: MULTIVITAMIN TAB PO SCH (07:24)
[2017-06-01] MEDS: VITAMIN B COMPLEX TAB PO SCH (07:24)
[2017-06-01] MEDS: PREGABALIN 50 MG CAP PO SCH (07:29)
[2017-06-01] MEDS: FUROSEMIDE 20 MG TAB PO SCH (07:29)
[2017-06-01] MEDS: FLUOXETINE HCL 20 MG CAP PO SCH (07:30)
[2017-06-01] MEDS: AMLODIPINE BESYLATE 5 MG TAB PO SCH (07:30)
[2017-06-01] MEDS: OXYCODONE HCL IR 5 MG TAB (IMMEDIATE RELEASE) PO PRN (07:36)
--- NOTE | 2017-06-01 08:07 | Orthopedic Progress Note ---
Orthopedic Progress Note Date of Service Jun 01, 2017. Subjective Post OP Day: 2 Reports: feeling well, pain controlled w PO medications, Denies: complaints, chest pain, SOB, nausea / vomiting, light headedness, calf pain Objective calves soft nontender, N/V intact, splint C/D/I, capillary refill less than 2 sec., A&O x3, toes mobile Date Time Temp Pulse Resp B/P (MAP) Pulse Ox O2 Delivery O2 Flow Rate FiO2 06/01/17 06:33 36.8 77 18 140/77 (98) 94 Room Air 05/31/17 23:38 36.6 67 16 112/65 (81) 93 Room Air 05/31/17 23:25 Room Air 05/31/17 15:40 Room Air 05/31/17 15:05 36.7 61 17 127/64 (85) 98 Room Air 05/31/17 12:08 36.4 68 17 143/51 (81) 97 Room Air Laboratory Results 24 Hours: Test 06/01/17 05:45 Hematocrit 33.7 % Hemoglobin 10.6 g/dL Assessment & Plan Assessment: POD #2 Left STAR Total Ankle Replacement Percutaneous Tendon Achilles Lengthening Application of Platelet Rich Plasma Concentrate Plan: NWB LLE at all times. DVT prophylaxis is Eliquis D/C planning--[facility] today if bed available. Inhouse Planning Pain Management: Morphine, PO Tylenol, Oxy IR DVT Prophylaxis: TEDs, other (Eliquis) Discharge Planning Discharge Planning: rehab hospital Pain Management: Oxy IR DVT Prophylaxis: ASA
[2017-06-01 09:37] VITALS: BP 140/77; PULSE 77; TEMP 36.8; O2SAT 94
[2017-06-02] MEDS ORDERED: METOLAZONE 2.5 MG TAB PO SCH (08:30)
--- NOTE | 2017-06-17 18:53 | Discharge Summary ---
Orthopedic Discharge Summary Admission Date/Reason May 30, 2017 at 07:27 Left Ankle Osteoarthritis. Discharge Date/Disposition Jun 01, 2017 Rehab Diagnosis Principal Diagnosis: left ankle osteoarthritis Procedure(s) Performed 1. Left ankle STAR total ankle replacement using a size extra large tibial component, a small talar component and a 6-mm polyethylene. 2. Percutaneous tendo Achilles lengthening. 3. Application of platelet rich plasma concentrate Consultations Medical consultation Medication Reconciliation New Medications: Acetaminophen (Sb Non-Aspirin Extra Stre) 500 Mg Tab 1000 MG PO Q8, #120 TAB Oxycodone HCl (Oxycodone HCl) 5 Mg Tab 5-10 MG PO Q4H PRN for Pain, #60 TAB Continued Medications: Amlodipine (Norvasc) 5 Mg Tab 5 MG PO QAM, TAB Apixaban (Eliquis) 5 Mg Tab 5 MG PO BID, TAB Ascorbic Acid (Vitamin C) 500 Mg Tab 1 TAB PO QAM B-Complex Vitamins (Vitamin B Complex) 1 Tab Tab 1 TAB PO QAM Ferrous Sulfate (Kp Ferrous Sulfate) 325 Mg Tab 1 TAB PO BID for 30 Days, #60 TAB 3 Refills Fluoxetine (Prozac) 20 Mg Cap 20 MG PO QAM, CAP Furosemide (Lasix) 20 Mg Tab 20 MG PO QAM, TAB Magnesium Oxide (Mag-Ox) 400 Mg Tab 400 MG PO BID, TAB Metolazone (Zaroxolyn) 2.5 Mg Tab 2.5 MG PO MWF, TAB Multivitamin (Multivitamin) Tab 1 TAB PO QAM, TAB Potassium Ext Rel (Klor-Con) 20 Meq Tabcr 20 MEQ PO BID, TAB Pregabalin (Lyrica) 50 Mg Cap 1 CAP PO TID for 30 Days, #90 CAP Spironolactone (Aldactone) 25 Mg Tab 12.5 MG PO QAM, TAB Sucralfate (Sucralfate) 1 Gm Tab 1 TAB PO BID for 30 Days, #60 TAB 3 Refills Tamsulosin HCl (Tamsulosin HCl) 0.4 Mg Cap 1 CAP PO BID Discontinued Medications: Celecoxib (CeleBREX) 200 Mg Cap 200 MG PO QAM, CAP Admission Physical Exam As per Admitting History & Physical. Hospital Course The patient underwent the above noted procedure on the above date. On POD #1, he was doing well with post operative pain and with maintaining NWB on the LLE. The plan for discharge was to go to [facility]. On POD #2, he continued to do well and a bed was available. The patient was then discharged on POD #2. Discharge Instructions Please refer to the electronic Patient Visit Report (Discharge Instructions) for additional information. ACTIVITY RECOMMENDATIONS: Limitations: No weight bearing to affected limb at all times. SPECIAL CARE INSTRUCTIONS: * Some drainage onto the dressing is normal and is no cause for alarm. * Some swelling is natural especially after walking. * When resting, keep your foot elevated above the level of your heart. * Call [facility] if you notice: -Increased drainage -Fever over 101 degrees F -Severe constant pain BANDAGE: * Leave bandage/cast in place unless otherwise directed. * Keep bandage/cast dry at all times. FOLLOW UP VISIT WITH DR. RODRIGUEZ If appointment is not already scheduled: Please call [facility] after you get home today to schedule a follow-up appointment for [address] Rodriguez at .
== END 2017-06-01 10:35 | DRG 469 ==
LOC: C.ACU 04:58 → C.3E 07:27 → ENRESERV 11:55
PROVIDERS: ADMIT Orthopaedic Surgery Sports Medicine; ATTEND Orthopaedic Surgery Sports Medicine
PROC: 0L8P3ZZ Division of Left Lower Leg Tendon, Percutaneous Approach (ICD-10-PCS; principal; 2017-05-30 07:30)
PROC: 3E0U3GC Introduction of Other Therapeutic Substance into Joints, Percutaneous Approach (ICD-10-PCS; principal; 2017-05-30 07:30)
PROC: 0SRG0JZ Replacement of Left Ankle Joint with Synthetic Substitute, Open Approach (ICD-10-PCS; principal; 2017-05-30 07:30)
DX: M19.072 Primary osteoarthritis, left ankle and foot (principal); M67.02 Short Achilles tendon (acquired), left ankle; E78.5 Hyperlipidemia, unspecified; I25.10 Atherosclerotic heart disease of native coronary artery without angina pectoris; Z85.51 Personal history of malignant neoplasm of bladder; I71.4 Abdominal aortic aneurysm, without rupture; J44.9 Chronic obstructive pulmonary disease, unspecified; Z96.649 Presence of unspecified artificial hip joint; Z96.659 Presence of unspecified artificial knee joint; Z95.0 Presence of cardiac pacemaker; Z98.61 Coronary angioplasty status; R60.9 Edema, unspecified; Z87.891 Personal history of nicotine dependence; I10 Essential (primary) hypertension